=== PATIENT | male | born 1970 ===

== ENCOUNTER 2019-09-30 10:18 | Outpatient (CLI) | payer OTHER | END 2019-09-30 10:27 | disposition home or self-care (01) | LOC: LAB 10:18 | DX: I10 Essential (primary) hypertension (principal); Z00.00 Encounter for general adult medical examination without abnormal findings; Z13.6 Encounter for screening for cardiovascular disorders; Z12.5 Encounter for screening for malignant neoplasm of prostate ==

== ENCOUNTER 2020-10-20 13:55 | Outpatient (CLI) | payer OTHER | END 2020-10-20 14:05 | disposition home or self-care (01) | LOC: LAB 13:55 | PROVIDERS: ATTEND Urology | DX: N40.0 Benign prostatic hyperplasia without lower urinary tract symptoms (principal); R97.20 Elevated prostate specific antigen [PSA]; R31.1 Benign essential microscopic hematuria ==

== ENCOUNTER 2020-10-26 07:17 | Outpatient (CLI) | payer OTHER | END 2020-10-26 07:53 | disposition home or self-care (01) | LOC: LAB 07:17 | PROVIDERS: ATTEND Specialist | DX: D50.8 Other iron deficiency anemias (principal); N39.8 Other specified disorders of urinary system; E11.42 Type 2 diabetes mellitus with diabetic polyneuropathy; E78.2 Mixed hyperlipidemia; K76.0 Fatty (change of) liver, not elsewhere classified; E03.8 Other specified hypothyroidism; E21.0 Primary hyperparathyroidism; E54 Ascorbic acid deficiency ==

== ENCOUNTER → 2020-10-27 13:12 | Outpatient (CLI) | payer OTHER | END | disposition home or self-care (01) | LOC: LAB 13:12 | PROVIDERS: ATTEND Specialist | DX: E55.9 Vitamin D deficiency, unspecified (principal) ==